=== PATIENT | male | born 1975 | race Caucasian/White ===

== ENCOUNTER 2017-08-29 10:46 | Outpatient (CLI) | payer OTHER ==
[2017-08-29 10:55] LABS: BASOPHILS % 0.6 (0.0-1.5); EOSINOPHILS % 1.7 % (0.0-6.8); MEAN CORPUSCULAR HEMOGLOBIN 32.7 pg (28.0-34.0); MEAN CORPUSCULAR VOLUME 89.8 fl (80.0-100.0); MONOCYTES % 6.4 % (0.0-11.0); NEUTROPHILS # 4.7 # k/uL (1.4-7.7)
[2017-08-29 11:03] LABS: eGFR (African) > 60; eGFR (Non-African) > 60
== END 2017-08-29 10:47 ==
LOC: LAB 10:46
PROVIDERS: ATTEND General Practice
DX: R76.11 Nonspecific reaction to tuberculin skin test without active tuberculosis (principal)
CPT/HCPCS: 80053; 85025